=== PATIENT | male | born 1950 | race Caucasian/White ===

== ENCOUNTER 2018-08-10 14:32 | Inpatient (IN) ==
[2018-08-10 15:30] LABS: BASO# 0.05 X1000 (0.0-0.2); BASO% 0.5 % (0.0-0.8); EOS# 0.21 X1000 (0.0-0.7); HEMATOCRIT 46.5 % (42.0-52.0); HEMOGLOBIN 16.2 g/dL (14.0-18.0); IMM GRAN# 0.01 X1000 (0.0-0.04); IMM GRAN% 0.1 % (0.0-0.5); LYMPH# 6.27 X1000 (1.2-3.4); LYMPH% 59.7 % (20.5-51.1); MCH 29.5 PG (27-31); MCHC 34.8 g/dL (33-37); MCV 84.5 FL (81-99); MONO# 0.64 X1000 (0.11-0.59); MONO% 6.1 % (1.7-9.3); MPV 10.8 FL (7.4-10.4); NEUT# 3.32 X1000 (1.4-6.5); NEUT% 31.6 % (42.2-75.2); PLT 256 X1000 (130-400); RDW 13.2 % (11.5-14.5)
--- NOTE | 2018-08-10 15:48 | EKG Report ---
Test Performed on : 08/10/2018 2:53:24 PM Test Reason : stroke like sym dizziness Blood Pressure : / mmHG Vent. Rate : 073 BPM Atrial Rate : 073 BPM P-R Int : 172 ms QRS Dur : 084 ms QT Int : 424 ms P-R-T Axes : 050 024 013 degrees QTc Int : 467 ms Normal sinus rhythm. Normal ECG No previous ECGs available Unconfirmed Result
[2018-08-10 15:52] LABS: AGAP 14; ALBUMIN 3.9 g/dL (3.5-5.0); ALKALINE PHOSPHATASE 80 U/L (32-122); BUN 9 mg/dL (8-22); CALCIUM 8.5 mg/dL (8.8-10.2); CHLORIDE 100 mmol/L (98-107); COSMO 279; CREATININE 0.7 mg/dL (0.7-1.2); ESTIMATED GFR > 60; GLUCOSE 213 mg/dL (70-104); GOT 31 U/L (10-34); GPT 32 U/L (10-44); MAGNESIUM 1.7 mg/dL (1.5-2.7); POTASSIUM 3.8 mmol/L (3.5-5.1); SODIUM 137 mmol/L (136-145); TCO2 22 mmol/L (25-35); TOTAL PROTEIN 7.4 g/dL (6.3-8.3)
[2018-08-10 15:54] LABS: BILIRUBIN URINE NEGATIVE (NEGATIVE); BLOOD URINE NEGATIVE (NEGATIVE); CLARITY CLEAR (CLEAR); COLOR YELLOW; KETONE URINE 1+(Small) mg/dL (NEGATIVE); LEUKOCYTES URINE NEGATIVE (NEGATIVE); NITRITE URINE NEGATIVE (NEGATIVE); PROTEIN URINE TRACE mg/dL (NEGATIVE); UROBILINOGEN URINE 1 mg/dL
[2018-08-10 15:54] LABS: INR 1.03
[2018-08-10 15:55] LABS: PTT 30.6 Seconds (22.3-41.8)
[2018-08-10 16:01] LABS: URINE SOURCE CLEAN CATCH
[2018-08-10 16:02] LABS: URINE BACTERIA 1+ /HFP; URINE EPITHELIAL CELLS <10 /HPF (<10); URINE RBC <10 /HPF (<10); URINE WBC <10 /HPF (<10)
[2018-08-10 16:03] LABS: URINE CAST NONE SEEN /LPF; URINE CRYSTAL NONE SEEN /HPF; URINE YEAST NONE SEEN /HPF
--- NOTE | 2018-08-10 16:03 | Diag Imaging Result Doc PS360 ---
EXAM: CT HEAD W/O CONTRAST INDICATION: bed TECHNIQUE: This exam was performed using automated exposure control, adjustment of mA or kV according to patient size, and/or use of iterative reconstruction technique. COMPARISON: None. FINDINGS: There is patchy low attenuation in the periventricular and subcortical white matter suggesting mild to moderate microangiopathy. There is no definite acute infarct given the limited sensitivity of CT versus MRI. There is no discrete intracranial mass, mass effect, or intracranial hemorrhage. There is minimal sinus mucosal thickening and hyperostosis associated with the left maxillary sinus indicating mild chronic sinusitis. IMPRESSION: Chronic appearing changes as described. No definite acute intracranial pathology by CT. Electronically signed by Jeevan Mckay 08/10/2018 4:01 PM
[2018-08-10 16:07] LABS: UR AMPHETAMINES QUAL NONE DETECTED (NONE DETECT); UR BARBITUATES QUAL NONE DETECTED (NONE DETECT); UR BENZODIAZEPIN QUAL NONE DETECTED (NONE DETECT); UR CANNABINOIDS QUAL NONE DETECTED (NONE DETECT); UR COCAINE QUAL NONE DETECTED (NONE DETECT); UR METHADONE QUAL NONE DETECTED (NONE DETECT); UR METHAMPHETAMINE QUAL NONE DETECTED (NONE DETECT); UR OPIATES QUAL NONE DETECTED (NONE DETECT); UR OXYCODONE QUAL NONE DETECTED (NONE DETECT); UR PCP QUAL NONE DETECTED (NONE DETECT); UR PROPOXYPHENE QUAL NONE DETECTED (NONE DETECT); UR TCA QUAL NONE DETECTED (NONE DETECT)
--- NOTE | 2018-08-10 16:08 | Diag Imaging Result Doc PS360 ---
EXAM: CHEST-1 VIEW HISTORY: CVA TECHNIQUE: PA and Lateral chest x-ray COMPARISON: None. FINDINGS: There is a suboptimal inspiratory result. There is mild elevation the right hemidiaphragm. The cardiomediastinal silhouette is within normal limits. The pulmonary vasculature is not congested. No infiltrate, effusion, or pneumothorax is appreciated. IMPRESSION: No acute cardiopulmonary abnormality is identified. Electronically signed by Vicki Mccartney 08/10/2018 4:05 PM
--- NOTE | 2018-08-10 17:10 | PROVIDER DOCUMENTATION ---
This chart was entered by Aleisha Last Scribe, acting as scribe for Manish Byers MD. HPI-Neurological Disorder - General Chief Complaint: Stroke-Like Symptoms Stated Complaint: DIZZY / COUGH / SPEECH SLURRED Time Seen by Provider: 08/10/18 14:51 Source: patient, family Allergies/Adverse Reactions: Patient Allergies Allergy/AdvReac Type Severity Reaction Status Date / Time codeine AdvReac NAUSEA Verified 08/10/18 14:47 - History of Present Illness-Neuro Nature of Presenting Problem: 67 yowm presents to the ed with c/o dizziness and unbalance and mild aphasia with slurring of speech. pt sts episodes are intermittent and onset was last night. pt sts episodes last 15-20 minutes in length Headache Location: reports: parietal Severity: reports: mild Onset/Duration: reports: last night Timing: reports: still present, intermittent Context: reports: impaired speech. denies: fever, paresthesia, facial droop, falling, seizure activity Character of Altered Mental Status: reports: N/A Any recent trauma/injury?: reports: none Character of Deficits: reports: impaired speech. denies: decreased ability to stand, decreased ability to walk New weakness or altered sensation location:: reports: none Cognitive Baseline: alert, oriented x3 Gait Baseline: walks without assistance Associated Symptoms: reports: headache, dizziness, slurred speech. denies: decreased ability to walk or stand, fainting, chest pain, neck/back pain, fatigue, fever/chills, diaphoretic, vomiting Similar Symptoms Previously?: Yes (cva in past) Recently seen or treated by another doctor?: No Review of Systems - Adult - REVIEW OF SYSTEMS - ADULT Constitutional: denies: chills, fever Eyes: reports: no symptoms reported Ears, Nose, Mouth & Throat: reports: see HPI, other (stangling with taking in PO) Cardiovascular: denies: chest pain, palpitations Respiratory: denies: cough, shortness of breath, wheezing Gastrointestinal: reports: no symptoms reported Genitourinary: reports: no symptoms reported Musculoskeletal: denies: back pain, neck pain Integumentary: reports: no symptoms reported Neurological: reports: headache/migraines, loss of balance, slurred speech, other (aphasia). denies: dizziness/vertigo, seizure, syncope, tremors Psychiatric: reports: no symptoms reported Endocrine: reports: no symptoms reported Hematologic/Lymphatic: reports: no symptoms reported Allergic/Immunologic: reports: no symptoms reported All Other Systems: Reviewed and Negative Past History - Adult - PAST MEDICAL HISTORY-ADULT Review of Records: reports: Nursing Assessment Review, Medications Reviewed Major Childhood Illnesses: reports: denies history Cardiovascular: reports: denies history Respiratory: reports: denies history Gastrointestinal: reports: denies history Genitourinary: reports: denies history Musculoskeletal: reports: denies history Hand Dominance: Right Handed Neurological: reports: CVA Psychiatric: reports: denies history Endocrine/Immune: reports: Diabetes Diabetes Type: Type 2 Other Conditions: reports: denies history - PRIOR SURGERIES/PROCEDURES Surgical/Procedure History: reports: reviewed, not pertinent - IMMUNIZATION STATUS Childhood Immunizations: See Nurse Assessment Flu Vaccine: See Nurse Assessment - FAMILY HISTORY Family History: reviewed, not pertinent - SOCIAL HISTORY Smoking: quit greater than 1 year Substance Use: denies Alcohol Use Frequency: never Living Situation: family Physical Exam- Neurological - Physical Exam-Neuro Initial Vital Signs Reviewed: Yes General Appearance: appears well, alert, no apparent distress, obese Eye Exam: bilateral eye: normal inspection, PERRL HENMT: normocephalic/atraumatic, moist mucous membranes, normal ENT inspection Head Injury: no evidence of injury Neck: non-tender, supple, normal inspection Respiratory: chest non-tender, lungs clear, normal breath sounds, no pleuratic chest pain, no respiratory distress, no accessory muscle use Cardiovascular: normal peripheral pulses, regular rate, rhythm Abdominal Exam: normal bowel sounds, non tender, soft Lymphatic: no adenopathy Extremity: normal range of motion, non-tender, normal gait, normal inspection, no pedal edema, no calf tenderness, normal capillary refill, 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 Exam: normal hearing, PERRL, abnormal speech (mild slurring and delay in some words) Coordination/Gait: normal finger to nose, normal gait Motor/Sensory: no motor deficit, no sensory deficit, no pronator drift Neurologic: grossly normal, no motor/sensory deficits Integumentary: normal color, normal turgor, warm/dry Psych/Mental Status: normal mood/affect, normal thought content, normal thought process, oriented x 3 - Glascow Coma Scale Best Eye Response: (4) open spontaneously Best Verbal Response: (5) oriented Best Motor Response: (6) obeys commands Total Glascow Score: 15 Progress - PLAN OF CARE/RESULTS Progress/Plan/Lab Results: Vital Signs - 8 hr 08/10/18 14:42 Temperature 98 F Pulse Rate 78 Respiratory Rate 18 Blood Pressure 157/66 O2 Sat by Pulse Oximetry 97 Laboratory Results - last 24 hr 08/10/18 08/10/18 08/10/18 15:03 15:03 15:03 WBC 10.50 RBC 5.50 Hgb 16.2 Hct 46.5 MCV 84.5 MCH 29.5 MCHC 34.8 RDW Std Deviation 13.2 Plt Count 256 MPV 10.8 H Immature Gran % (Auto) 0.1 Neut % (Auto) 31.6 L Lymph % (Auto) 59.7 H Sp[place]ding % (Auto) 6.1 Eos % (Auto) 2.0 Baso % (Auto) 0.5 Immature Gran # (Auto) 0.01 Neut # (Auto) 3.32 Lymph # (Auto) 6.27 H Sp[place] # (Auto) 0.64 H Eos # (Auto) 0.21 Baso # (Auto) 0.05 PT INR PTT (Actin FS) D-Dimer, Quantitative Sodium Potassium Chloride Carbon Dioxide Anion Gap BUN Creatinine Estimated GFR/1.73 m2 BUN/Creatinine Ratio Glucose Calculated Osmolality Calcium Magnesium Total Bilirubin AST ALT Alkaline Phosphatase Creatine Kinase 77 Troponin T < 0.010 Rut-[id number]-Tjdapzhprfx Pept Total Protein Albumin Globulin Albumin/Globulin Ratio Urine Source Urine Color Urine Clarity Urine pH Ur Specific [place] Urine Protein Urine Ketones Urine Blood Urine Nitrite Urine Bilirubin Urine Urobilinogen Urine Microscopic RBC Urine WBC Urine Microscopic WBC Ur Epithelial Cells Urine Crystals Urine Bacteria Urine Casts Urine Yeast Urine Glucose Urine Opiates Screen Ur Oxycodone Screen Urine Methadone Screen U Propoxyphene Qual Ur Barbituates Screen Ur Tricyclics Screen Ur Phencyclidine Scrn Ur Amphetamines Screen U Methamphetamines Scrn U Benzodiazepines Scrn Urine Cocaine Screen U Cannabinoids Screen 08/10/18 08/10/18 08/10/18 15:03 15:03 15:03 WBC RBC Hgb Hct MCV MCH MCHC RDW Std Deviation Plt Count MPV Immature Gran % (Auto) Neut % (Auto) Lymph % (Auto) Sp[place]ding % (Auto) Eos % (Auto) Baso % (Auto) Immature Gran # (Auto) Neut # (Auto) Lymph # (Auto) Sp[place] # (Auto) Eos # (Auto) Baso # (Auto) PT INR PTT (Actin FS) D-Dimer, Quantitative < 0.27 Sodium 137 Potassium 3.8 Chloride 100 Carbon Dioxide 22 L Anion Gap 14 BUN 9 Creatinine 0.7 Estimated GFR/1.73 m2 > 60 BUN/Creatinine Ratio 13 Glucose 213 H Calculated Osmolality 279 Calcium 8.5 L Magnesium 1.7 Total Bilirubin 0.40 AST 31 ALT 32 Alkaline Phosphatase 80 Creatine Kinase Troponin T Kas-[id number]-Jncvmhlfvmv Pept 62 Total Protein 7.4 Albumin 3.9 Globulin 4.0 Albumin/Globulin Ratio 1.0 Urine Source Urine Color Urine Clarity Urine pH Ur Specific [place] Urine Protein Urine Ketones Urine Blood Urine Nitrite Urine Bilirubin Urine Urobilinogen Urine Microscopic RBC Urine WBC Urine Microscopic WBC Ur Epithelial Cells Urine Crystals Urine Bacteria Urine Casts Urine Yeast Urine Glucose Urine Opiates Screen Ur Oxycodone Screen Urine Methadone Screen U Propoxyphene Qual Ur Barbituates Screen Ur Tricyclics Screen Ur Phencyclidine Scrn Ur Amphetamines Screen U Methamphetamines Scrn U Benzodiazepines Scrn Urine Cocaine Screen U Cannabinoids Screen 08/10/18 08/10/18 08/10/18 15:03 15:13 15:13 WBC RBC Hgb Hct MCV MCH MCHC RDW Std Deviation Plt Count MPV Immature Gran % (Auto) Neut % (Auto) Lymph % (Auto) Sp[place] % (Auto) Eos % (Auto) Baso % (Auto) Immature Gran # (Auto) Neut # (Auto) Lymph # (Auto) [place] # (Auto) Eos # (Auto) Baso # (Auto) PT 14.0 INR 1.03 PTT (Actin FS) 30.6 D-Dimer, Quantitative Sodium Potassium Chloride Carbon Dioxide Anion Gap BUN Creatinine Estimated GFR/1.73 m2 BUN/Creatinine Ratio Glucose Calculated Osmolality Calcium Magnesium Total Bilirubin AST ALT Alkaline Phosphatase Creatine Kinase Troponin T Kbl-[id number] Pept Total Protein Albumin Globulin Albumin/Globulin Ratio Urine Source CLEAN CATCH Urine Color YELLOW Urine Clarity CLEAR Urine pH 5.0 Ur Specific [place] 1.020 Urine Protein TRACE A Urine Ketones 1+(Small) A Urine Blood NEGATIVE Urine Nitrite NEGATIVE Urine Bilirubin NEGATIVE Urine Urobilinogen 1 Urine Microscopic RBC <10 Urine WBC NEGATIVE Urine Microscopic WBC <10 Ur Epithelial Cells <10 Urine Crystals NONE SEEN Urine Bacteria 1+ Urine Casts NONE SEEN Urine Yeast NONE SEEN Urine Glucose 2+(250 mg/dL) A Urine Opiates Screen NONE DETECTED Ur Oxycodone Screen NONE DETECTED Urine Methadone Screen NONE DETECTED U Propoxyphene Qual NONE DETECTED Ur Barbituates Screen NONE DETECTED Ur Tricyclics Screen NONE DETECTED Ur Phencyclidine Scrn NONE DETECTED Ur Amphetamines Screen NONE DETECTED U Methamphetamines Scrn NONE DETECTED U Benzodiazepines Scrn NONE DETECTED Urine Cocaine Screen NONE DETECTED U Cannabinoids Screen NONE DETECTED Orders Category Date Time Status Nursing- Obtain EKG ONCE Care 08/10/18 14:48 Active CHEST-1 VIEW [RAD] Stat Exams 08/10/18 15:[address] HEAD W/O CONTRAST [CT] Stat Exams 08/10/18 15:16 Completed CBC WITH DIFF [HEME] Stat Lab 08/10/18 15:03 Completed CK PROFILE [SP CHEM] Stat Lab 08/10/18 15:03 Completed COMPREHENSIVE METABOLIC PANEL [CHEM] Stat Lab 08/10/18 15:03 Completed D-DIMER [COAG] Stat Lab 08/10/18 15:03 Completed MAGNESIUM [CHEM] Stat Lab 08/10/18 15:03 Completed PRO B-NATRIURETIC PEPTIDE Stat Lab 08/10/18 15:03 Completed PROTIME WITH INR [COAG] Stat Lab 08/10/18 15:03 Completed PTT [COAG] Stat Lab 08/10/18 15:03 Completed TROPONIN T Stat Lab 08/10/18 15:[address] W/POSS RFLX CULT [URINALYSIS] Stat Lab 08/10/18 15:13 Completed URINE DRUG SCREEN PL Stat Lab 08/10/18 15:13 Completed EKG [EKG] Stat Ther 08/10/18 14:48 Draft no TPA given due to sx improving and being intermittent. Result Diagrams: 08/10/18 15:03 08/10/18 15:03 - REASSESSMENT Reassessment #1 Time Reassessed: 17:04 Status: improving - EKG 1 Time of EKG reading by physician:: 14:53 EKG Read and Signed by:: Manish Byers EKG Interpretation (*Must complete 3 of following elements*): Normal Rate: 73 Rhythm: nsr Wiggins: normal QRS: normal CO Interval: normal ST Wave: normal Prior EKG Comparison: no prior EKG - XRAY 1 XRAY: Bilateral XRAY Study: Chest Impression: See EMR Report (EXAM: CHEST-1 VIEW HISTORY: CVA TECHNIQUE: PA and Lateral chest x-ray COMPARISON: None. FINDINGS: There is a suboptimal inspiratory result. There is mild elevation the right hemidiaphragm. The cardiomediastinal silhouette is within normal limits. The pulmonary vasculature is not congested. No infiltrate, effusion, or pneumothorax is appreciated. IMPRESSION: No acute cardiopulmonary abnormality is identified. Gisell ctronically signed by Vicki Mccartney 08/10/2018 4:05 PM 08/10/18 1605 Interpreting Physician: Vicki Mccartney MD Dictated Date/Time: 08/10/18 1604 cc: Manish Byers MD; Keren Burden) - CT/MRI 1 CT Study: Head Impression: See EMR Report (EXAM: CT HEAD W/O CONTRAST INDICATION: bed TECHNIQUE: This exam was performed using automated exposure control, adjustment of mA or kV according to patient size, and/or use of iterative reconstruction technique. COMPARISON: None. FINDINGS: There is patchy low attenuation in the periventricular and subcortical white matter suggesting mild to moderate mi croangiopathy. There is no definite acute infarct given the limited sensitivity of CT versus MRI. There is no discrete intracranial mass, mass effect, or intracranial hemorrhage. There is minimal sinus mucosal thickening and hyperostosis associated with the left maxillary sinus indicating mild chronic sinusitis. IMPRESSION: Chronic appearing changes as described. No definite acute intracranial pathology by CT. Electronically signed by Jeevan Mckay 08/10/2018 4:01 PM 08/10/18 1601 Interpreting Physician: Jeevan Mckay MD Dictated Date/Time: 08/10/18 1558 cc: Manish Byers MD; Keren Burden) - CONSULTS/PCP/HOSPITALIST Notification #1 *Consult/PCP/Hospitalist*: hospitalist dr duran Time Discussed: 17:05 Consult Disposition: Admit Departure - Departure Date of Disposition Decision: 08/10/18 Time of Disposition Decision: 17:08 DIAGNOSIS: CVA (cerebral vascular accident) Qualifiers: CVA mechanism: unspecified Qualified Code(s): I63.9 - Cerebral infarction, unspecified Disposition: ADMITTED INPATIENT 09 Certified Medical Emergency: Emergent Condition: Good Referrals and Follow-Ups: Keren Burden CRNP [Primary Care Provider] - - Critical Care Note This patient required my direct & personal management of CC.: No Attestation - Physician/ KATIA Attestation Patient care was provided by Advanced Practice Provider:: No The physician spent face to face time with patient:: Yes Advanced Practice Provider documentation review:: Supervising physician onsite and consulted in the evaluation and care of this patient. The physician did have a face to face encounter with the patient. - NIH Stroke Scale NIH Type: Initial Evaluation Level of Consciousness: 0-Alert LOC Questions (ask month and age): 0-Answers Both Correctly LOC Commands (ask to open & close eyes;make a fist, let go): 0-Obeys Both Correctly Best Gaze (horizontal eye movement): 0-Normal Visual (use finger movement, counting or visual threat): 0-No Visual Loss Facial Palsy (show teeth or raise eyebrows & close eyes tght: 0-Symmetrical Movement Motor Function-left arm: 0-Normal Motor Function-right arm: 0-Normal Motor Function-left le-Normal Motor Function-right le-Normal Limb Ataxia(aiwaoh-zbzm-nalnqf, or heel to charles): 0-No Ataxia Sensory(pin prick to face,arms,trunk,legs-compare side/side): 0-No Ataxia Best Language(name item/read sentence.Ex-Down to Earth): 1-Mild to Moderate Aphasia Dysarthria(Pt read words or say words Ex.Mama,Tip-Top,Thanks: 1-Mild-Mod Slurr ing Words Extinction and Inattention: 0-Normal NIH Total Score: 2 (pt is improving) Stroke tPA Guidelines - Inclusion Criteria for IV tPA 18 years old or older: Yes Ischemic stroke with measurable deficit: Yes Onset <3 hours ago *OR* 3-4.5 hours ago: No - Exclusion Criteria for IV tPA Evidence of intracranial hemorrhage on CT: No Presentation suggest SAH: No CT reveals defined area of hypodensity: No Evidence of AVM, neoplasm, aneurysm: No Seizure at stroke onset: No Active internal bleeding or acute trauma: No Platelet Count Less Than 100,000: No Heparin Within Last 48 HRS (PTT >Lab normal limits): No INR > 1.7 (warfarin use): No Use IIB/IIIA inhibitors within 24 hours: No Arterial Puncture Within Last 7 Days: No Lumbar Puncture Within Last 7 Days: No Repeated systolic Blood Pressure >185 or Diastolic >110: No - Additional Exclusion Criteria for IV tPA Currently on Coumadin: No Patient older than 80: No Prior stroke and diabetes: Yes Baseline NIHSS score > 25: No - Relative Contraindications to IV tPA CT reveals extensive area of infarct (>1/3 MCA territory): No Minor or rapidly improving stroke symptoms: Yes Major Surgery or Serious Trauma In Previous 14 Days: No AMI within 3 months: No Gastrointestinal or Urinary Tract hemorrhage in Past 21 Days: No Post - AMI pericarditis: No Blood Glucose Less Than 50 mg/dl or Greater Than 400 mg/dl: No This chart was documented by the indicated scribe, (Aleisha Last Scribe) and accurately reflects the services I performed and decisions made by me, Manish Byers MD, as attested by the provider's signature.
[2018-08-10] MEDS ORDERED: TYLENOL PO PRN (17:24)
[2018-08-10] MEDS ORDERED: ZOFRAN IV PRN (17:24)
[2018-08-10 17:55] LABS: I-STAT CREATININE 0.8 mg/dL (0.6-1.3)
[2018-08-10] MEDS: NS 1,000 ML IV SCH (18:12)
--- NOTE | 2018-08-10 19:15 | HISTORY AND PHYSICAL ---
PRIMARY CARE PHYSICIAN: DAVID Jacob, out of [place], [place]. CHIEF COMPLAINT: Dizziness, unbalanced, mild aphasia, slurred speech, intermittent headache, and some mild strangling with thin liquids. HISTORY OF PRESENT ILLNESS: Mr. Ricardo Farmer is a 67-year-old male with a medical history of CVA in May 2012. Associated symptoms during that stroke were left-sided weakness and drooling, but all that essentially resolved. He states that since then he may possibly get occasionally strangled with thin liquids, but that is not very often. Also has a history of diabetes mellitus type 2, hypertension, GERD, and vitamin D deficiency. He presents with complaints of dizziness, unbalance, mild aphasia, slurred speech, a mild parietal headache, and slight strangling with thin liquids that started around 4 p.m. yesterday. The symptoms last for about 15-20 minutes before they resolve, and so it has been intermittent since then. Currently he is symptom free. He denies any numbness, tingling or passing out. Denies any chest pain. He does have some lower back discomfort from being in the bed, but otherwise he has no symptoms at this time. A head CT that was initially performed showed mild to moderate microangiopathy. No acute stroke, and there is possibly some mild chronic sinusitis. LABORATORY DATA: Essentially unremarkable. He is hyperglycemic. Urine drug screen is negative. We are going to observe him overnight and perform a full workup for stroke or TIA in the morning. Will start him on aspirin and a statin. PAST MEDICAL HISTORY: 1. CVA 05/16/2012. Symptoms at that time were left-sided weakness and drooling, all of which resolved. 2. Diabetes mellitus type 2. 3. Hypertension. 4. GERD. 5. Vitamin D deficiency. 6. Morbid obesity with a BMI of 44.3. PAST SURGICAL HISTORY: None. SOCIAL HISTORY: Denies tobacco, alcohol or illicit drug use. He is . 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 FAMILY HISTORY: Mother's side of the family: Alcohol abuse, congestive heart failure, coronary disease with a CABG by the age of 57. Father had lung cancer. Sister had diabetes. He had a grandmother who was full-blooded Lummi who lived to the age of 112. ALLERGIES: Codeine causes severe nausea and vomiting. HOME MEDICATIONS: Not verified yet. REVIEW OF SYSTEMS: A 14-point review of systems is completed, and all are negative except for those mentioned above in the HPI. PHYSICAL EXAMINATION: VITAL SIGNS: Temperature 98.0, heart rate 74, respiratory rate 18, blood pressure 144/84, O2 saturation 97% on room air. Weight is 300 pounds, height 5 feet 9 inches tall, with a BMI of 44.3. GENERAL: Mr. Ricardo Farmer is a 67-year-old male. He is in no acute distress. He is able to answer questions appropriately. HEENT: Atraumatic, normocephalic. Pupils equal, round, and reactive to light. Extraocular movements intact. Mucous membranes are moist. NECK: Trachea midline. CARDIOVASCULAR: S1 and S2. Regular rate and rhythm. No rubs, gallops or murmurs. No lower extremity edema, +2 dorsalis and radial pulses. Negative for JVD or carotid bruits. PULMONARY: Clear to auscultate. Bilateral breath sounds. No accessory muscle use or work of breathing noted. GI: Soft, nontender, nondistended. Positive bowel sounds x4. EXTREMITIES: Moves all extremities equally. Full range of motion. NEUROLOGIC: A O x3. Follows commands. Sensory is intact. SKIN: Warm, dry and intact. LABORATORY DATA: White blood cells 10,000, hemoglobin 16, hematocrit 46, platelet count 256. INR is 1.03. PTT is 30.6. D-dimer is less than 0.27. Sodium is 137, potassium 3.8, BUN 9, creatinine 0.7, glucose 213. Calcium 8.5, magnesium 1.7, bilirubin 0.40. AST 31, ALT 32. CK 77, troponin less than 0.01. ProBNP 62. Albumin 3.9. Urinalysis: Trace protein, 1+ ketones, 2+ glucose. Urine drug screen negative. IMAGING: Head CT: Chronic changes, nothing acute. Chest x-ray: No acute findings. EKG: Normal sinus rhythm, rate 73. QTc is 467. ASSESSMENT/PLAN: 1. Transient ischemic attack versus cerebrovascular accident. Symptoms appear to be more transient ischemic attack related, but they are intermittent, so there is concern that maybe there are either small ischemic clots or an intermittent clot. Imaging will be performed tomorrow, including an echocardiogram, carotid ultrasound, MRI/MRA of the brain. Neuro checks, physical therapy, speech therapy. Will check his swallowing, as he is unable to swallow thin liquids sometimes. We are also checking a lipid panel. 2. Diabetes mellitus type 2. Will do pattern blood glucoses, sliding-scale insulin, and check a hemoglobin A1c. 3. Hypertension. Home medications have not been verified, but he is around the 140s/150s. That is fine. We will allow for permissive hypertension and not add antihypertensives for now. 4. Gastroesophageal reflux disease. Will add a proton pump inhibitor if it is on his home medications. 5. Vitamin D deficiency. Also, once home medications are verified, will resume that. 6. Deep venous thrombosis prophylaxis with sequential compression devices. Dictated by DAVID Clayton for Kwame Jennings MD Addendum: Patient seen and examined by myself. Agree with DAVID note. It reflects my assessment and plan. Patient is being admitted to hospital for TIA vs stroke. Will order MRI/MRA of brain and neck. An echo and carotid ultrasound has been ordered as well. Currently he is asymptomatic. Will monitor patient closely. cc: DAVID Clayotn MD [facility]
[2018-08-10] MEDS: LIPITOR PO SCH (21:09)
[2018-08-10] MEDS: HUMULIN R (PARKWAY) SUBQ SCH (21:09)
[2018-08-11] MEDS: HUMULIN R (PARKWAY) SUBQ SCH ×4 (06:08→23:14)
[2018-08-11 06:40] LABS: BASO# 0.04 X1000 (0.0-0.2); BASO% 0.5 % (0.0-0.8); EOS# 0.18 X1000 (0.0-0.7); EOS% 2.2 % (0.0-10.0); HEMATOCRIT 49.6 % (42.0-52.0); HEMOGLOBIN 16.8 g/dL (14.0-18.0); IMM GRAN# 0.02 X1000 (0.0-0.04); IMM GRAN% 0.2 % (0.0-0.5); LYMPH# 4.34 X1000 (1.2-3.4); LYMPH% 53.7 % (20.5-51.1); MCH 28.9 PG (27-31); MCHC 33.9 g/dL (33-37); MCV 85.4 FL (81-99); MONO# 0.51 X1000 (0.11-0.59); MONO% 6.3 % (1.7-9.3); MPV 11.5 FL (7.4-10.4); NEUT# 2.99 X1000 (1.4-6.5); NEUT% 37.1 % (42.2-75.2); PLT 221 X1000 (130-400); RBC 5.81 XMIL (4.7-6.1); RDW 13.5 % (11.5-14.5); WBC 8.08 X1000 (4.8-10.8)
[2018-08-11 06:50] LABS: AGAP 11; ALBUMIN 3.8 g/dL (3.5-5.0); ALKALINE PHOSPHATASE 78 U/L (32-122); BUN 11 mg/dL (8-22); CALCIUM 8.3 mg/dL (8.8-10.2); CHLORIDE 104 mmol/L (98-107); COSMO 285; CREATININE 0.6 mg/dL (0.7-1.2); ESTIMATED GFR > 60; GLUCOSE 184 mg/dL (70-104); GOT 32 U/L (10-34); GPT 38 U/L (10-44); POTASSIUM 3.9 mmol/L (3.5-5.1); SODIUM 141 mmol/L (136-145); TCO2 25 mmol/L (25-35); TOTAL PROTEIN 7.3 g/dL (6.3-8.3)
[2018-08-11 06:57] LABS: HEMOGLOBIN A1C 8.8 % (4.8-6.0)
[2018-08-11 06:59] LABS: FREE T4 1.37 ng/dL (0.93-1.70); TSH 2.34 uIUmL (0.27-4.20)
[2018-08-11] MEDS: NS 1,000 ML IV SCH (07:00)
[2018-08-11 07:25] LABS: INR 1.06; PROTIME 14.3 Seconds (11.0-16.0)
[2018-08-11] MEDS: ASPIRIN PO SCH (11:31)
--- NOTE | 2018-08-11 14:21 | PROGRESS NOTE ---
DATE: 08/11/2018 SUBJECTIVE: Patient reports feeling fine. Denies any more slurred speech. No focal symptoms noted. OBJECTIVE: Vital Signs: Temperature 98.1 degrees, heart rate 67, respiratory 16, blood pressure 146/83, O2 saturation 99% on room air. General Examination: This is a morbidly obese, 67-year- old male, lying in bed in no acute distress. Cardiovascular exam: S1, S2 heard. No murmurs, gallops, or rubs. Regular rate and rhythm. Respiratory exam: Clear bilaterally to auscultation. No work of breathing or using accessory muscles. Abdomen: Soft, nontender to palpation. Bowel sounds present. No organomegaly. Extremities: No clubbing, cyanosis, or edema. Peripheral pulses present in both legs. Neurological exam: Patient is alert and oriented x3. Moves 4 extremities. LABORATORY DATA: Reviewed. ASSESSMENT AND PLAN: 1. Transient ischemic attack versus cerebrovascular accident. At this point, his symptoms of slurred speech has resolved. We have ordered a magnetic resonance imaging of the brain with and without contrast and magnetic resonance angiogram of the brain and neck, but those exams have not been done yet. Also, an echocardiogram and also carotid ultrasound have been ordered. We will see what it shows. 2. Diabetes mellitus type 2. Hemoglobin A1c 6.8. We will continue to monitor this patient closely. 3. Hypertension. Blood pressure is under control. We will continue with the same management. 4. Gastroesophageal reflux disease. We will continue with Protonix. 5. Vitamin D deficiency. We will continue with vitamin D replacement. 6. Disposition: I think if all exams return normal, patient can be discharged most likely tomorrow. cc: Kwame Jennings MD
--- NOTE | 2018-08-11 14:42 | Diag Imaging Result Doc PS360 ---
EXAM: MRI BRAIN W/WO CONTRAST - 08/11/2018 HISTORY: stroke TECHNIQUE: MRI brain without with contrast. Images are obtained prior to and following gadolinium administration. COMPARISON: None. FINDINGS: There are moderate chronic microvascular ischemic changes. The diffusion weighted images show no areas of restricted diffusion (no evidence of acute infarct). There is no evidence of intracranial hemorrhage, mass effect, midline shift, or hydrocephalus. There is no abnormal enhancement identified. IMPRESSION: Moderate chronic microvascular ischemic changes. No visible acute intracranial abnormality. No evidence of acute infarct. Electronically signed by Michael Lund 08/11/2018 2:40 PM
--- NOTE | 2018-08-11 14:59 | Diag Imaging Result Doc PS360 ---
EXAM: MRA BRAIN W/O CONTRAST - 08/11/2018 HISTORY: stoke-like symptoms TECHNIQUE: MRA brain without contrast. [id number] MR angiogram of the intracranial circulation with reconstructed 3-D MIP images obtained. COMPARISON: None. FINDINGS: There is short segment mild to moderate stenosis of the junction of the internal carotid and middle cerebral arteries on the left. The A1 segment left anterior cerebral artery is either occluded or atretic, with the left A2 segment receiving its supply from the right via the anterior communicating artery. There is mild narrowing of the bilateral posterior cerebral arteries. There is no aneurysm identified. IMPRESSION: Short segment mild to moderate stenosis at junction of internal carotid and middle cerebral arteries on the left. The A1 segment left anterior cerebral artery is occluded or atretic, with the A2 segment receiving its supply from the right via the anterior communicating artery. Areas of mild narrowing at bilateral posterior cerebral arteries. Electronically signed by Michael Lund 08/11/2018 2:57 PM
--- NOTE | 2018-08-11 16:45 | Extremity Venous Study ---
EXAM: Carotid Ultrasound - 08/11/2018 HISTORY: cva TECHNIQUE: Carotid flow studies COMPARISON: None. FINDINGS: There is no substantial atherosclerotic plaque identified in the right carotid system. Maximum systolic velocity right internal carotid is 49 cm/s, maximum diastolic velocity is 12 cm/s. The right internal to common carotid systolic velocity ratio is 0.45. The flow velocities and ratio are consistent with 0-39% stenosis at the right internal carotid. There is no substantial atherosclerotic plaquing left carotid system. Maximum systolic velocity left internal carotid is 42 cm/s, and maximum diastolic velocity is 19 cm/s. The left internal to common carotid systolic velocity ratio is 0.65. The flow velocities and ratio are consistent with 0-39% stenosis at the left internal carotid. The bilateral vertebrals appear demonstrate antegrade flow. IMPRESSION: 0-39% stenosis at right internal carotid. 0-39% stenosis at left internal carotid. Electronically signed by Michael Lund 08/11/2018 4:43 PM
[2018-08-11] MEDS: LIPITOR PO SCH (23:14)
[2018-08-12] MEDS: HUMULIN R (PARKWAY) SUBQ SCH (06:06)
[2018-08-12 07:40] VITALS: BP 154/79
[2018-08-12] MEDS: ASPIRIN PO SCH (08:54)
--- NOTE | 2018-08-12 10:15 | ECHO REPORT ---
ORDER DATE: 08/11/2018 INTERPRETING PHYSICIAN: Dewayne Menon MD ECHOCARDIOGRAPHIC MEASUREMENTS: 1. Interventricular septum 1.2 cm. 2. Left ventricular posterior wall 1.0 cm. 3. Diastolic diameter 4.7 cm. 4. Left atrium 3.8 cm. 5. Aorta 3.8 cm. SUMMARY OF THE 2-DIMENSIONAL IMAGIN. The aortic valve leaflets were trileaflet. 2. Pulmonic valve was normal. 3. There is left atrial enlargement. 4. Mitral valve was normal. 5. There is mitral annular calcification. 6. Normal right ventricular cavity size and function. 7. There is mild mitral regurgitation. 8. Mild tricuspid regurgitation. 9. Peak velocity across the tricuspid valve was 2.3 m/sec. 10. Pulmonary artery systolic pressure of 31 mmHg. 11. Peak velocity across the aortic valve less than 2 m/sec. 12. There is no aortic stenosis or regurgitation. 13. Optison was used to assess left ventricular systolic function. 14. Normal left ventricular cavity size. 15. Mild left ventricular hypertrophy. 16. Estimated ejection fraction of 65% to 70%. 17. There is no pericardial effusion or obvious intracardiac mass or thrombus seen. cc: MD Shauna Laurent CRNP
--- NOTE | 2018-08-13 12:40 | DISCHARGE SUMMARY ---
ADMISSION DATE: 08/10/2018 DISCHARGE DATE: 08/12/2018 ADMITTING DIAGNOSES: 1. Transient ischemic attack versus cerebrovascular accident. 2. Diabetes mellitus type 2. 3. Hypertension. 4. Gastroesophageal reflux disease. 5. Vitamin D deficiency. DISCHARGE DIAGNOSES: 1. Transient ischemic attack versus cerebrovascular accident. At this point, symptoms have resolved. 2. Diabetes mellitus type 2 with A1c of 6.8. 3. Hypertension. Controlled. 4. Gastroesophageal reflux disease. 5. Vitamin D deficiency. CONSULTATIONS: None. SURGERIES AND PROCEDURES: None. HOSPITAL COURSE: Mr. Ricardo Farmer is a 67-year-old male with a medical history of CVA in 05/2012. Associated symptoms were left-sided weakness and drooling, but all that resolved. He states that since then, he may possibly get occasionally strangled with thin liquids, but that is not very often. He has a history of diabetes and hypertension, GERD and vitamin D deficiency. He presents with complaints of dizziness, unbalanced, mild aphasia, slurred speech, and a mild parietal headache that had started at 4:00 p.m. the day before admission. Every time, it would last about 15 to 20 minutes long and then would resolve, and they were intermittent. Upon presentation, he was currently symptom free. Denied any numbness, tingling or passing out. Denied chest pain. Head CT showed to mild to moderate microangiopathy but no acute stroke. Then he had further workup including MRI, MRA of the brain. MRI was negative, but then an MRA showed mild to moderate stenosis at the junction of the internal carotid and middle cerebral arteries on the left with a left anterior cerebral artery occlusion but was receiving collateral circulation. He had a carotid that only showed 0% to 39% stenosis bilaterally. He had an echocardiogram that showed a normal ejection fraction, maybe some mild pulmonary hypertension, mild LVH. With symptoms resolved, he was deemed appropriate for discharge home. DISCHARGE VITAL SIGNS: Temperature is 97.8, heart rate 70, respiratory rate 18, blood pressure 154/79, O2 saturation is 97% on room air. DISCHARGE LAB DATA: White blood cells 8000, hemoglobin 16, hematocrit 49, platelet count 221. Sodium is 141, potassium 3.9, BUN is 11, creatinine 0.6, glucose 191. A1c was 8.8. Magnesium 1.7. PERTINENT IMAGING: Chest x-ray negative. Head CT negative. Brain MRI negative for anything acute. Carotid ultrasound 0% to 39%, but the brain MRA showed mild to moderate stenosis at the junction of the IJ and middle cerebral arteries on the left with left anterior cerebral artery occlusion, receiving supply from the right via the anterior communicating artery. EKG is normal sinus rhythm. An echocardiogram again showed pulmonary hypertension, mild LVH, EF of 65% to 70%. DISCHARGE MEDICATIONS: 1. Aspirin 325 mg p.o. daily. 2. Glimepiride 2 mg p.o. daily. 3. Glucophage 1000 mg p.o. twice daily. 4. Januvia 100 mg p.o. daily. 5. Mobic 15 mg p.o. daily. 6. Norvasc 10 mg p.o. daily. 7. Prilosec 40 mg p.o. daily. 8. Lipitor 40 mg p.o. nightly. DISCHARGE ACTIVITY: As tolerated. DISCHARGE DIET: Heart healthy, diabetic. DISCHARGE FOLLOWUP: Primary care provider. DISCHARGE INSTRUCTIONS: If your condition changes, contact your physician and/or return to the emergency department. Changes may include but are not limited to shortness of breath, increased fatigue, excessive bleeding, unexplained weight loss or gain, unimaginable pain, signs or symptoms of infection. DISCHARGE DISPOSITION: Home. Dictated by DAVID Clayton for Kwame Jennings MD Addendum: Patient seen and examined by myself. Agree with DAVID note. It reflects my assessment and plan. Patient is being discharged in stable condition. Patient will be seen by primary care doctor in a week. cc: DAVID Clayton MD [facility]
== END 2018-08-12 10:50 | disposition home or self-care (01) | DRG 65 ==
LOC: P.ED 14:32 → P.MEDSURG 18:30
PROVIDERS: ATTEND Internal Medicine
CPT/HCPCS: 70450; 70544; 70553; 71010; 71045; 80053; 80061; 80104; 80301; 80305; 81001; 82550; 82565; 82948; 83036; 83721; 83735; 83880; 84439; 84443; 84484; 84520; 85025; 85379; 85610; 85730; 92523; 93005; 93306; 93880; 94761; 97163; 99285; A9270; A9579; C8929; G0431; G0434; G0477; J1815; J7030; Q9957; XXXXX